=== PATIENT | male | born 1950 | race Caucasian/White ===

== ENCOUNTER 2024-09-27 15:18 | Inpatient (IN) | payer MEDICARE, OTHER ==
[2024-09-27 16:45] LABS: BASOPHILS PERCENT AUTO 0.2 % (0.0-1.0); EOSINOPHILS PERCENT AUTO 0.1 % (0.0-6.0); HEMATOCRIT 40.9 % (42.0-52.0); HEMOGLOBIN 14.1 gm/dl (14.0-18.0); IMMATURE GRAN ABSOLUTE AUTO 0.39 K/mm3 (0.00-0.05); IMMATURE GRAN PERCENT AUTO 2.3 % (0.0-0.4); LYMPHOCYTES ABSOLUTE AUTO 0.7 K/mm3 (1.0-4.8); LYMPHOCYTES PERCENT AUTO 4.1 % (24.0-44.0); MEAN CORPUSCULAR HEMOGLOBIN 29.7 pg (28.0-32.0); MEAN CORPUSCULAR HGB CONC 34.5 g/dl (32.0-36.0); MEAN CORPUSCULAR VOLUME 86.3 fl (83.0-99.0); MEAN PLATELET VOLUME 8.6 fl (9.4-12.4); MONOCYTES ABSOLUTE AUTO 1.7 K/mm3 (0.0-0.8); MONOCYTES PERCENT AUTO 10.4 % (0.0-8.0); NEUTROPHILS ABSOLUTE AUTO 13.8 K/mm3 (1.8-7.7); NEUTROPHILS PERCENT AUTO 82.9 % (41.0-71.0); PLATELET COUNT,PLT 364 K/mm3 (150-400); RED BLOOD CELL COUNT 4.74 M/mm3 (4.52-5.90); WHITE BLOOD CELL COUNT,WBC 16.72 K/mm3 (3.9-11.3)
[2024-09-27] MEDS: Sodium Chloride 0.9% 1,000 ML IV ONE (16:59)
[2024-09-27] MEDS: cefTRIAXone 2 GM Vial IVPUSH ONE (16:59)
[2024-09-27] MEDS: Azithromycin 250 MG Tab PO ONE (17:00)
[2024-09-27 17:10] LABS: A/G RATIO 0.6 (1-2); ALBUMIN 2.5 g/dl (3.4-5.0); BILIRUBIN TOTAL 1.4 mg/dL (0.2-1.0); CALCIUM 8.1 mg/dL (8.5-10.1); EST CRCL DRUG DOSING (CG) 68.94 mL/min; PROTEIN TOTAL,TP 6.5 g/dl (6.4-8.2)
[2024-09-27 17:26] LABS: INR 1.14
[2024-09-27 17:33] LABS: LACTIC ACID 0.8 mmol/L (0.4-2.0)
[2024-09-27] MEDS: Albuterol/Ipratropium 3.0-0.5 MG/3 ML Neb Soln NEB ONE (17:43)
[2024-09-27] MEDS: Acetaminophen 325 MG Tab PO ONE (20:10)
[2024-09-28] MEDS: Albuterol/Ipratropium 3.0-0.5 MG/3 ML Neb Soln NEB PRN (04:03)
[2024-09-28] MEDS: Azithromycin 500 MG in Sodium Chloride 0.9% 250 ML IV SCH (06:21)
[2024-09-28] MEDS: cefTRIAXone 2 GM Vial IVPUSH SCH (06:22)
[2024-09-28] MEDS ORDERED: Ondansetron 4 MG/2 ML SDV IV PRN (08:36)
[2024-09-28] MEDS ORDERED: Albuterol 0.083% 2.5 MG/3 ML Neb Soln NEB PRN (09:12)
[2024-09-28] MEDS: Albuterol/Ipratropium 3.0-0.5 MG/3 ML Neb Soln NEB SCH (09:43)
[2024-09-28] MEDS: predniSONE 20 MG Tab PO ONE (10:07)
[2024-09-28] MEDS: Enoxaparin 40 MG/0.4 ML Syringe SUBCUT SCH (10:07)
[2024-09-28] MEDS: Docusate Sodium 100 MG Cap PO SCH (21:20)
[2024-09-29 06:45] LABS: HEMATOCRIT 39.3 % (42.0-52.0); HEMOGLOBIN 13.1 gm/dl (14.0-18.0); MEAN CORPUSCULAR HEMOGLOBIN 28.8 pg (28.0-32.0); MEAN CORPUSCULAR HGB CONC 33.3 g/dl (32.0-36.0); MEAN CORPUSCULAR VOLUME 86.4 fl (83.0-99.0); MEAN PLATELET VOLUME 8.6 fl (9.4-12.4); PLATELET COUNT,PLT 419 K/mm3 (150-400); RED BLOOD CELL COUNT 4.55 M/mm3 (4.52-5.90); WHITE BLOOD CELL COUNT,WBC 10.96 K/mm3 (3.9-11.3)
[2024-09-29 07:09] LABS: A/G RATIO 0.6 (1-2); ALBUMIN 2.3 g/dl (3.4-5.0); ANION GAP 13.2 (5-15); BILIRUBIN TOTAL 0.8 mg/dL (0.2-1.0); C-REACTIVE PROTEIN 6.58 mg/dL (<0.30); CALCIUM 8.2 mg/dL (8.5-10.1); EST CRCL DRUG DOSING (CG) 68.94 mL/min; POTASSIUM,K 3.2 mEq/L (3.5-5.1); PROTEIN TOTAL,TP 6.3 g/dl (6.4-8.2)
[2024-09-29] MEDS: Potassium Chloride 20 MEQ Tab.ER PO SCH (08:59)
[2024-09-29] MEDS ORDERED: Docusate Sodium 100 MG Cap PO PRN (10:03)
[2024-09-29] MEDS: guaiFENesin 600 MG Tab.ER PO SCH (10:54)
[2024-09-29] MEDS: Acetaminophen 325 MG Tab PO PRN (13:25)
[2024-09-29] MEDS: Ketorolac 15 MG/ML SDV IVPUSH PRN (16:40)
[2024-09-29] MEDS: predniSONE 20 MG Tab PO ONE (16:41)
[2024-09-30 04:43] LABS: HEMATOCRIT 39.6 % (42.0-52.0); HEMOGLOBIN 13.3 gm/dl (14.0-18.0); MEAN CORPUSCULAR HEMOGLOBIN 29.1 pg (28.0-32.0); MEAN CORPUSCULAR HGB CONC 33.6 g/dl (32.0-36.0); MEAN CORPUSCULAR VOLUME 86.7 fl (83.0-99.0); MEAN PLATELET VOLUME 8.8 fl (9.4-12.4); PLATELET COUNT,PLT 480 K/mm3 (150-400); RED BLOOD CELL COUNT 4.57 M/mm3 (4.52-5.90); WHITE BLOOD CELL COUNT,WBC 12.15 K/mm3 (3.9-11.3)
[2024-09-30 05:14] LABS: A/G RATIO 0.6 (1-2); ALBUMIN 2.5 g/dl (3.4-5.0); ANION GAP 15.3 (5-15); BILIRUBIN TOTAL 0.8 mg/dL (0.2-1.0); BUN/CREATININE RATIO 14.4 (14-18); C-REACTIVE PROTEIN 4.45 mg/dL (<0.30); CALCIUM 8.4 mg/dL (8.5-10.1); CREATININE 0.9 mg/dL (0.7-1.3); EST CRCL DRUG DOSING (CG) 76.6 mL/min; POTASSIUM,K 4.3 mEq/L (3.5-5.1); PROTEIN TOTAL,TP 6.5 g/dl (6.4-8.2)
[2024-09-30] MEDS: predniSONE 20 MG Tab PO SCH (06:06)
[2024-09-30 07:15] LABS: URIC ACID 2.7 mg/dL (3.5-7.2)
[2024-10-01 04:52] LABS: HEMATOCRIT 40.2 % (42.0-52.0); HEMOGLOBIN 13.5 gm/dl (14.0-18.0); MEAN CORPUSCULAR HGB CONC 33.6 g/dl (32.0-36.0); MEAN CORPUSCULAR VOLUME 86.5 fl (83.0-99.0); MEAN PLATELET VOLUME 8.8 fl (9.4-12.4); PLATELET COUNT,PLT 528 K/mm3 (150-400); RED BLOOD CELL COUNT 4.65 M/mm3 (4.52-5.90); WHITE BLOOD CELL COUNT,WBC 12.69 K/mm3 (3.9-11.3)
[2024-10-01 05:26] LABS: A/G RATIO 0.6 (1-2); ALBUMIN 2.6 g/dl (3.4-5.0); ANION GAP 13.1 (5-15); BILIRUBIN TOTAL 0.6 mg/dL (0.2-1.0); C-REACTIVE PROTEIN 2.45 mg/dL (<0.30); CALCIUM 8.6 mg/dL (8.5-10.1); EST CRCL DRUG DOSING (CG) 68.94 mL/min; POTASSIUM,K 4.1 mEq/L (3.5-5.1); PROTEIN TOTAL,TP 6.8 g/dl (6.4-8.2)
== END 2024-10-01 14:16 | disposition home or self-care (01) | DRG 871 ==
LOC: JD.ED 15:18 → JD.MS 09-28 06:07
PROVIDERS: ADMIT Internal Medicine; ATTEND Student in an Organized Health Care Education/Training Program
DX: A41.9 Sepsis, unspecified organism (principal); J10.08 Influenza due to other identified influenza virus with other specified pneumonia; J96.01 Acute respiratory failure with hypoxia; J15.9 Unspecified bacterial pneumonia; R65.20 Severe sepsis without septic shock; K59.00 Constipation, unspecified; E87.6 Hypokalemia; M11.232 Other chondrocalcinosis, left wrist; M10.9 Gout, unspecified
CPT/HCPCS: 36415; 71045; 71045-26; 71046; 71046-26; 73130-26-LT; 73130-LT; 80053; 83605; 83735; 84550; 85025; 85027; 85610; 86140; 87040; 87428-QW; 94640; 94667; 94668; 94761; 99285; A9270-GY; J0456; J0696; J1650; J1885; J7030; J7512; J7620-GY